=== PATIENT | male | born 1960 | race Caucasian/White ===

== ENCOUNTER → 2016-09-06 | Day surgery (SDC) | payer BC ==
[~2016-09-06] VITALS: Ht 182.9 cm; Wt 117.9 kg
[~2016-09-06] MED LIST: ASCO10002 PO; CIPR500T PO; CIPR500T94 PO; DEXAMETHASONE SOD PHOS 20 MG/5 ML VIAL. ONE; EPHEDRINE SULFATE 50 MG/ML VIAL. ONE; FENTANYL PF 100 MCG/2 ML VIAL. IV PRN; FENTANYL PF 100 MCG/2 ML VIAL. ONE; FISH OIL PO; HYDR-2666 PO; HYDR-2678 PO; HYDROCODONE/APAP 5/325MG TABLET. ONE; HYDROCODONE/APAP 5/325MG TABLET. PO PRN; HYDROMORPHONE 2 MG/ML VIAL. IV PRN; IBUPROFEN PO; IV RINGERS,LACTATED 1000ML 1,000 ML IV SCH; LIDOCAINE 1% 1 ML SYRINGE. ID PRN; LIDOCAINE 2% 100 MG/5 ML DISP.SYRIN. ONE; LOSA50TA6 PO; MORPHINE SULFATE 2 MG/ML DISP.SYRIN. IV PRN; MULT1TAB52 PO; NAPR220C4 PO; ONDANSETRON PF 4 MG/2 ML VIAL. IV PRN; ONDANSETRON PF 4 MG/2 ML VIAL. ONE; PHEN-318 PO; PROCHLORPERAZINE 10 MG/2 ML VIAL. IV PRN; PROPOFOL 20 ML IV ONE; SEVOFLURANE 16 TO 30 MINUTES. IH ONE; TAMS0.4C2 PO; VITAMIN D3 PO
[2016-09-06 07:18] LABS: BILIRUBIN,URINE NEGATIVE (NEG); GLUCOSE,URINE NEGATIVE (NEG); NITRITE,URINE NEGATIVE (NEG); PROTEIN,URINE 30 mg/dL (NEG-TRACE); UROBILINOGEN,URINE 0.2 mg/dL (0.2 mg/dL)
[2016-09-06 07:29] LABS: BACTERIA,URINE FEW /HPF (0-FEW); WBC,URINE RARE /HPF (0-4)
[2016-09-06 07:46] LABS: BASO % 1 % (0-3); EOS % 3 % (0-3); HEMATOCRIT 49.3 % (39.0-53.0); HEMOGLOBIN 16.2 g/dL (13.0-17.5); LYMPH # 1.5 x10^3/uL (1.0-4.8); LYMPH % 22 % (24-48); MEAN CORPUSCULAR HEMOGLOBIN 29 pg (25-35); MEAN CORPUSCULAR HGB CONC 33 g/dL (31-37); MEAN CORPUSCULAR VOLUME 89 fL (79-100); MONO % 11 % (0-9); NEUT % 63 % (31-73); PLATELET COUNT 176 x10^3/uL (140-400); RED BLOOD COUNT 5.52 x10^6/uL (4.30-5.70); RED CELL DISTRIBUTION WIDTH 14.7 % (11.5-14.5); WHITE BLOOD COUNT 6.9 x10^3/uL (4.0-11.0)
[2016-09-06 07:52] LABS: CALCIUM 9.6 mg/dL (8.5-10.1); CREATININE 1.3 mg/dL (0.7-1.3); GFR 57.3; POTASSIUM 3.7 mmol/L (3.5-5.1)
[2016-09-06] MEDS: FENTANYL PF 100 MCG/2 ML VIAL. IV PRN ×4 (09:20→09:55)
--- NOTE | 2016-09-06 09:24 | DISCH ---
DISCHARGE INSTRUCTIONS Condition on Discharge Condition on Discharge: Stable Activity After Discharge Activity Instructions for Disc: Activity as tolerated Driving Instructions after Dis: Do not drive today Diet after Discharge Diet after Discharge: Regular Wound Incision Care Other wound/incision instructi: dominic sam bag of choice Contacting the after DC Call your doctor for: Concerns you may have Follow-Up Follow up with: f/u Monday for catheter removal SKYLAR WEISS DO Sep 06, 2016 09:24
--- NOTE | 2016-09-06 09:28 | PDOC ---
BRIEF OPERATIVE NOTE Date: Sep 06, 2016 Pre-Op Diagnosis Bladder Cancer Post-Op Diagnosis Same Procedure Performed Cystoscopy multiple bladder biopsies Surgeon Chris Anesthesia Type: General Blood Loss Minimal Specimens Obtained bladder biopsies Findings small recurrence Complications none Additional Remarks tolerated well, home with alfaro remove in office SKYLAR WEISS DO Sep 06, 2016 09:28
--- NOTE | 2016-09-06 10:01 | OP ---
DATE OF SURGERY: 09/06/2016 PREOPERATIVE DIAGNOSIS: Bladder cancer. POSTOPERATIVE DIAGNOSIS: Bladder cancer. PROCEDURE: Cystoscopy, multiple bladder biopsies. SURGEON: Skylar Weiss DO. ANESTHESIA: General. INDICATIONS AND JUDGMENT: This is a 55-year-old male with multifocal superficial bladder cancer. He just completed ____ of obesity, bladder treatments about 4-5 weeks ago. He presents today for cystoscopy, bladder biopsies and to evaluate his progress. This was explained to the patient. He appeared to understand and was agreeable. DESCRIPTION OF PROCEDURE: The patient was preloaded with IV antibiotics. He was taken to the operating room and placed on the operating room table in a supine position, given a general anesthetic and then placed in a dorsolithotomy position using Wellington stirrups since we do not have a cystoscopy table. Rigid cystoscopy was performed. Urethra was normal course and caliber. The prostate was visualized. He has a 30 gram prostate with visual obstruction of bladder outlet. The scope was advanced into the bladder. The bladder was carefully examined with a 30 degree and 70 degree lens. The bladder wall was trabeculated. Examination revealed a velvety mucosal area in the region of the right trigone and there was another velvety red lesion on the right lateral wall of the bladder. No other bladder mucosal abnormalities were directed. The ureteral orifices were normal bilaterally. I took 2 biopsies of the red velvety mucosa in the region of the right trigone and another biopsy of the area on the right lateral wall. These were submitted to pathology for permanent sections. I then dilated the meatus. I then advanced a 24-Upper Sorbian resectoscope sheath into the urethra and into the bladder. An [employer] resectoscope was utilized and he was fitted with the rollerball. I then fulgurated these biopsy sites and the red velvety mucosa with the rollerball electrode. Hemostasis was satisfactory. The instruments were removed. I then lubricated and placed a 20-Upper Sorbian 2-way Lezama catheter into the urethra and into the bladder, 5 mL balloon was filled and this was connected to a dependent drainage bag. The patient tolerated the procedure well and was sent to recovery room in satisfactory condition. Plans will be to send him home with a prescription for Cipro. We will remove the Lezama catheter in the office. SKYLAR WEISS DO DR: Tommy JOB#: [id number] / [id number]
[2016-09-06 10:25] VITALS: BP 135/41
--- NOTE | 2016-09-07 14:07 | PATHOLOGY ---
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 SEE COMMENT. - Chronic inflammation with lamina propria fibrosis and focal dystrophic calcification and foreign body giant cell reaction. COMMENT: Sections of the bladder biopsy reveal a papillary high grade urothelial carcinoma. There is focal invasive high grade urothelial carcinoma within the superficial lamina propria. There is accompanying chronic inflammation. There is also focal fibrosis of lamina propria with dystrophic calcification and foreign body giant cell reaction. There is muscularis propria focally present showing no evidence of invasive carcinoma. The case is also examined by Dr. Roz Brantley, who concurs with the diagnosis. (JPM:csd; d/t: 09/07/2016) REPORT ELECTRONICALLY SIGNED BY: Wyatt Chung M.D. DATE/TIME: 09/07/2016 14:07 * * * * * * * * GROSS PATHOLOGY: The specimen is received in formalin, labeled "Junior Flores and bladder biopsies." Received is a 0.9 x 0.3 x 0.2 cm aggregate of blood-tinged, white-harrington, rubbery, and irregular soft tissue fragments. The specimen is entirely submitted in cassette A1. (TTL; 09/06/2016) INITIAL CPT CODE(S): A; 37709 Professional services performed [place] [facility] [place] [address] Technical services performed by [facility] at [address] [place] [address]. SHYANNE Ordoñez fax: [phone] SPECIMEN(S) RECEIVED: A.Bladder biopsies CLINICAL HISTORY: Bladder cancer PATIENT: JUNIOR FLORES /AGE: 511/28/1960 (Age: 55) PATIENT #: [id number] ALT CASE #: SPECIMEN COLLECTION DATE: 09/06/2016 SPECIMEN RECEIVED DATE: 09/06/2016 [facility] - [address] [place] [address] - PHONE: [phone] * * * END OF REPORT * * *
== END | disposition home or self-care (01) ==
LOC: SURG 06:42
PROVIDERS: ATTEND Urology
DX: C67.9 Malignant neoplasm of bladder, unspecified (principal); I10 Essential (primary) hypertension; Z87.891 Personal history of nicotine dependence
CPT/HCPCS: 36415; 52204; 80048; 81001; 85027; J1100; J1956; J2405; J2704; J3010; 88305; J7120

== ENCOUNTER → 2016-11-09 | Outpatient (CLI) | payer BC ==
[2016-09-06 10:25] VITALS: BP 135/41
[~2016-11-09] MED LIST changes: -DEXAMETHASONE SOD PHOS 20 MG/5 ML VIAL. ONE; -EPHEDRINE SULFATE 50 MG/ML VIAL. ONE; -FENTANYL PF 100 MCG/2 ML VIAL. IV PRN; -FENTANYL PF 100 MCG/2 ML VIAL. ONE; -HYDROCODONE/APAP 5/325MG TABLET. ONE; -HYDROCODONE/APAP 5/325MG TABLET. PO PRN; -HYDROMORPHONE 2 MG/ML VIAL. IV PRN; -IV RINGERS,LACTATED 1000ML 1,000 ML IV SCH; -LIDOCAINE 1% 1 ML SYRINGE. ID PRN; -LIDOCAINE 2% 100 MG/5 ML DISP.SYRIN. ONE; -MORPHINE SULFATE 2 MG/ML DISP.SYRIN. IV PRN; -ONDANSETRON PF 4 MG/2 ML VIAL. IV PRN; -ONDANSETRON PF 4 MG/2 ML VIAL. ONE; -PROCHLORPERAZINE 10 MG/2 ML VIAL. IV PRN; -PROPOFOL 20 ML IV ONE; -SEVOFLURANE 16 TO 30 MINUTES. IH ONE
[2016-11-09 09:28] LABS: GLUCOSE,URINE NEGATIVE (NEG); PH,URINE 5.5
[2016-11-09 09:45] LABS: BACTERIA,URINE 0 /HPF (0-FEW); RBC,URINE TNTC /HPF (0-2); WBC,URINE OCC /HPF (0-4)
== END | disposition home or self-care (01) ==
LOC: LAB 08:56
PROVIDERS: ATTEND Urology
DX: R30.9 Painful micturition, unspecified (principal)
CPT/HCPCS: 81001